=== PATIENT | male | born 1965 | race Caucasian/White ===

== ENCOUNTER → 2016-09-21 | Day surgery (SDC) | payer OTHER ==
[~2016-09-21] MED LIST: AMITRIPTYLINE100 MG PO; FLOMAX0.4 MG PO; HCTZ12.5 MG PO; IMITREX100 MG PO; NEXIUM40 MG PO; PERCOCET 5/3251 TAB PO; REMERON15 MG PO; TRAZODONE HCL100 MG PO; WELLBUTRIN XL300 MG PO
[2016-09-21 07:57] LABS: HCT 43.3 % (42.0-52.0); HGB 15.2 g/dl (13.2-18.0); MCH 33.3 pg (25.0-31.0); MCHC 35.1 g/dL (32.0-36.0); MCV 94.7 fL (78.0-100.0); MPV 8.7 fL (6.0-9.5); RBC 4.57 M/uL (4.70-6.00); RDW 12.5 % (11.5-14.0); WBC 5.7 K/uL (4.0-10.5)
[2016-09-21 08:07] LABS: INR 1.06 (0.9-1.2); PROTHROMBIN TIME 13.4 SECONDS (11.7-14.0); PTT 28.4 SECONDS (23.2-31.4)
[2016-09-21 08:18] LABS: ALBUMIN 4.1 g/dL (3.5-5.0); BILIRUBIN - TOTAL 0.3 mg/dL (0.1-1.0); CREATININE 1.2 mg/dL (0.7-1.2); GLOBULIN (CALCULATION) 3.1 g/dL (2.2-4.2); POTASSIUM 3.4 mmol/L (3.5-5.1); TOTAL PROTEIN 7.2 g/dL (6.4-8.3)
[2016-09-21 08:38] LABS: FOLIC ACID (SERUM) > 20.0 ng/mL (4.4-31.0); TSH (THYROID STIM HORMONE) 3.67 uIU/mL (0.270-4.200); VITAMIN D (25-OH) 25.61 ng/mL
== END | disposition home or self-care (01) ==
LOC: FAS 07:32
PROVIDERS: Surgery
DX: K29.50 Unspecified chronic gastritis without bleeding (principal); E66.01 Morbid (severe) obesity due to excess calories; R56.9 Unspecified convulsions; K21.9 Gastro-esophageal reflux disease without esophagitis; G47.30 Sleep apnea, unspecified; Z99.81 Dependence on supplemental oxygen; Z79.899 Other long term (current) drug therapy; Z88.8 Allergy status to other drugs, medicaments and biological substances; Z98.890 Other specified postprocedural states; Z68.41 Body mass index [BMI] 40.0-44.9, adult; Z88.5 Allergy status to narcotic agent
CPT/HCPCS: 36415; 80053; 80061; 82306; 82607; 82728; 82746; 83036; 83540; 83550; 84425; 84443; 85610; 85730; 88305; J2704